=== PATIENT | male | born 2000 | race African-American/Black ===

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

== ENCOUNTER 2019-02-18 10:09 | Emergency (ER) | payer MEDICAID, OTHER ==
[2019-02-18 10:23] VITALS: BP 128/67
--- NOTE | 2019-02-18 10:58 | UC ---
Hand/Wrist HPI - HPI Summary HPI Summary: CHIEF COMPLAINT and HPI: This is a 18 y/o male who hyperextended left hand primarily fingers #4 and # 5. C/o discomfort with movement and swelling. This condition began today. Since then increased swelling. Description of Pain: Location: left hand fingers 4 and 5 Radiation: radial aspect of left forearm Type: pain with movement especially flexion Intensity: mild Variation: decreased with no movement. VITAL SIGNS & SaO2 REVIEWED. Within normal limits unless noted here. 128/67; patient is urgent emergent and in pain. NURSES NOTE REVIEWED. "jammed left hand, 4th and 5th digits into bleachers while running at school. put hands up to stop " - History Of Current Complaint Chief Complaint: UCUpperExtremity Stated Complaint: LT HAND Time Seen by Provider: 02/18/19 10:50 Pain Intensity: 5 - Allergies/Home Medications Allergies/Adverse Reactions: Allergies Allergy/AdvReac Type Severity Reaction Status Date / Time No Known Allergies Allergy Verified 02/18/19 10:23 Home Medications: Home Medications NK [No Home Medications Reported] 02/18/19 [History Confirmed 02/18/19] PMH/Surg Hx/FS Hx/Imm Hx - Additional Past Medical History Additional PMH: PAST MEDICAL HISTORY- patient denies admissions for medical conditions or surgery. CHRONIC and RECURRENT HEALTH PROBLEM LIST REVIEWED. Information relevant to present complaint: VISIT HISTORY REVIEWED: MEDICATIONS & ALLERGIES REVIEWED. HYPERTENSION STATUS: no medications; slightly elevated systolic pressure probably from pain. FAMILY HISTORY: Patient denies family history of: hypertension, cardiovascular disease, stroke, diabetes, cancer. SOCIAL HISTORY: non-smoker, lives with family, and is a senior in high school. Previously Healthy: Yes - Surgical History Surgical History: Yes Surgery Procedure, Year, and Place: Tonsillectomy January 20, 2018 - Family History Known Family History: Positive: Unknown - Guardian does not know FHx, Other - Grandmother: [place] - Social History Alcohol Use: None Substance Use Type: None Substance Use Comment - Amount & Last Used: first time was tonight Smoking Status (MU): Never Smoked Tobacco Amount Used/How Often: pt has used no tobacco products in last 30 days Have You Smoked in the Last Year: No - Immunization History Most Recent Influenza Vaccination: fall 2016 Most Recent Pneumonia Vaccination: NA Review of Systems All Other Systems Reviewed And Are Negative: Yes Constitutional: Positive: Negative Respiratory: Positive: Negative. Negative: Shortness Of Breath Cardiovascular: Positive: Negative. Negative: Palpitations Gastrointestinal: Positive: Negative. Negative: Abdominal Pain Is Patient Immunocompromised?: No Physical Exam - Summary Physical Exam Summary: Appearance: The patient is well-appearing, is in no pain or distress, and is well-nourished. Eyes: Conjunctiva are clear. Pupils are equal and reactive to light and accommodation. Extra ocular muscle movement is intact. ENT: The hearing is grossly normal, the pharynx is normal, and the TMs are normal. There is no muffled or hoarse voice. No stridor. Neck: The neck is supple and there is no lymphadenopathy. Respiratory: The chest is non-tender to palpation and without crepitus. The lungs are clear, there are normal breath sounds, and there is no respiratory distress. No wheezes, rales or rhonchi. Cardiovascular: Heart sounds reveal a regular rate and rhythm. There are no clicks, rubs or murmurs. There are no carotid bruits or thrills. Circulation is grossly intact. Abdomen: The abdomen is soft and nontender. There is no organomegaly. Bowel sounds are present and within normal limits. No point tenderness at McBurneys point. No CVA tenderness. Musculoskeletal: The patient moves all extremities. Left hand: swelling 4 and 5 fingers. Full range of movement and circulation and sensatioin but hurts to make a fist over the flexor tendons of 4th and 5th fingers. Neurological: The patient is alert. Motor and sensory are examination grossly intact. Speech is normal. Psychological: The patient displays age appropriate behavior, and is conversant. GCS=15. Skin: Negative for rashes. Vital Signs: Initial Vital Signs Temp 97.7 F 02/18/19 10:18 Pulse 65 02/18/19 10:18 Resp 18 02/18/19 10:18 BP 128/67 02/18/19 10:18 Pulse Ox 100 02/18/19 10:18 Hand/Wrist Course/Dx - Course Course Of Treatment: MEDICAL DECISION MAKING and PLAN: This is a 18 y/o male who hyperextended left hand primarily fingers #4 and # 5. C/o discomfort with movement and swelling. This condition began today. Since then increased swelling. Description of Pain: Location: left hand fingers 4 and 5 Radiation: radial aspect of left forearm Type: pain with movement especially flexion Intensity: mild Variation: decreased with no movement. The patient moves all extremities. Left hand: swelling 4 and 5 fingers. Full range of movement and circulation and sensation but hurts to make a fist over the flexor tendons of 4th and 5th fingers. Dx is sprain/strain of the volar tissue of the left hand, fingers # 4 and # 5. X ray IMPRESSION: SOFT TISSUE SWELLING, NO FRACTURE IS SEEN. MEDICATIONS REVIEWED. HYPERTENSION STATUS REVIEWED WITH PATIENT IF blood pressure is above 120/80. Patient is urgent/emergent causing transient blood pressure elevation. - Differential Dx/Diagnosis Differential Diagnosis/HQI/PQRI: Contusion, Fracture, Sprain, Strain Provider Diagnosis: Finger sprain Discharge - Sign-Out/Discharge Documenting (check all that apply): Patient Departure All imaging exams completed and their final reports reviewed: Yes - Discharge Plan Condition: Stable Disposition: HOME Patient Education Materials: Finger Sprain (ED) Forms: *Physical Education Release Referrals: Ricardo Helton MD [Primary Care Provider] - Additional Instructions: WE DISCUSSED: PLEASE SEEK CARE AT THE EMERGENCY DEPARTMENT IF SYMPTOMS WORSEN OR IF NEW SYMPTOMS DEVELOP. FOLLOW UP WITH YOUR PRIMARY CARE PHYSICIAN IF CONDITION CONTINUES BEYOND 3 DAYS WITHOUT IMPROVEMENT. YOUR DIAGNOSIS IS: sprain of 4th and 5th fingers of your left hand YOUR PRESCRIPTION RECOMMENDATION IS: rest hand, use splint for the next 5-10 days, warm moist heat in the morning to fingers; ice to area after work. I have given you instructions for restricted activity. OTHER INSTRUCTIONS: FOR PAIN AND/OR SLEEP: For pain: Ibuprofen (Motrin and other brand names) 400-600mg PLUS acetaminophen (Tylenol and other brand names) 500mg - 1000mg every 8 hours. Your blood pressure today was slightly elevated. Check your blood pressure again over the next few months. It should be less than 120/80. - Billing Disposition and Condition Condition: STABLE Disposition: Home
== END 2019-02-18 11:43 | disposition home or self-care (01) ==
LOC: UCEAST 10:09
DX: S63.615A Unspecified sprain of left ring finger, initial encounter (principal); S63.617A Unspecified sprain of left little finger, initial encounter; W23.0XXA Caught, crushed, jammed, or pinched between moving objects, initial encounter; Y93.02 Activity, running; Y92.219 Unspecified school as the place of occurrence of the external cause; R03.0 Elevated blood-pressure reading, without diagnosis of hypertension
CPT/HCPCS: 99211; G0463